=== PATIENT | male | born 1960 | race Caucasian/White ===

== ENCOUNTER → 2017-04-27 | Outpatient (CLI) | payer OTHER | END | disposition home or self-care (01) | LOC: PCVCIMAG 15:43 | DX: I25.10 Atherosclerotic heart disease of native coronary artery without angina pectoris (principal); I10 Essential (primary) hypertension; E78.00 Pure hypercholesterolemia, unspecified; R09.89 Other specified symptoms and signs involving the circulatory and respiratory systems; Z79.899 Other long term (current) drug therapy | CPT/HCPCS: 80061; 93005; 93880 ==

== ENCOUNTER → 2018-02-10 | Outpatient (CLI) | payer OTHER ==
--- NOTE | 2018-02-10 12:40 | PCVCIMAG ---
APPROVED REPORT Study performed: 02/10/2018 09:18:23 Exam: Stress Echocardiogram Indication: CAD s/p PCI, htn, hlp Patient Location: Echo lab Stress Nurse: Dee Conway RN Status: routine Ht: 5 ft 8 in HR: 67 bpm BP: 146/80 mmHg Rhythm: NSR Procedure The patient underwent an Exercise Stress Test using the Garrett Protocol. Blood pressure, heart rate, and EKG were monitored. An Echocardiogram was performed by cartography/mapping technician in four stages in quad fashion. At peak stress, four selected images were obtained and placed side by side with resting images for comparison. Stress Test Details Stress Test: Exercise stress testing was performed using a Garrett protocol. HR Resting HR: 67 bpmMax Heart Rate (APMHR): 161 bpm Max HR Achieved: 144 bpmTarget HR (85% APMHR): 136 bpm % of APMHR: 89 Recovery HR: 89 bpm HR response to stress: Normal HR response to stress BP Resting BP: 146/80 mmHg Max BP: 180/74 mmHg Recovery BP: 130/70 mmHg BP response to stress: Normal blood pressure response to stress. ECG Resting ECG: Sinus Rhythm, incomplete RBBB Stress ECG: Sinus Rhythm ST Change: non-specific ST changes Arrhythmia: None Recovery ECG: Sinus Rhythm Recovery ST Change: Normal Recovery Arrhythmia: None Clinical Reason for Termination: Maximal effort Stress Symptoms: Dyspnea, back pain Exercise duration: 9 min sec Highest Stage Achieved: Stage 3: 3.4 mph at 14% grade. Exercise capacity: 10.4 METs Overall Exercise Capacity for Age: Normal Scale: Active Angina Score: None Pre-Stress Echo The resting Echocardiogram showed normal left ventricular contractility with an estimated Ejection Fraction of about 50-55%. Normal wall motion in all segments on baseline images. Post-Stress Echo The stress Echocardiogram showed normal left ventricular contractility with an estimated Ejection Fraction of about 60-65%. Normal augmentation of wall motion in all segments on post stress images. Clinical No clinical or ECG evidence for ischemia. Conclusion Clinical Response: Non-ischemic Exercise Capacity: Average Stress ECG Response: Non-ischemic Stress Echo Images: Non-ischemic The left ventricle is normal in size and mild concentric wall thickness in both the rest and stress images. Other Information Study Quality: Adequate <Conclusion> The left ventricle is normal in size and mild concentric wall thickness in both the rest and stress images.
== END | disposition home or self-care (01) ==
LOC: PCVCIMAG 09:57
PROVIDERS: ATTEND Internal Medicine Cardiovascular Disease
DX: R07.9 Chest pain, unspecified (principal); I25.10 Atherosclerotic heart disease of native coronary artery without angina pectoris; I10 Essential (primary) hypertension; E78.5 Hyperlipidemia, unspecified; Z88.0 Allergy status to penicillin
CPT/HCPCS: 93325; 93351

== ENCOUNTER → 2018-08-25 | Outpatient (CLI) | payer OTHER ==
--- NOTE | 2018-08-25 15:54 | PCVCIMAG ---
APPROVED REPORT Study performed: 08/25/2018 12:15:12 Exam: Stress Echocardiogram Indication: CAD s/p PCI, chest pain, dyspnea, bradycardia Patient Location: Echo lab Stress Nurse: Dee Conway RN Status: routine Ht: 5 ft 8 in HR: 58 bpm BP: 120/74 mmHg Rhythm: Bradycardia Procedure The patient underwent an Exercise Stress Test using the Garrett Protocol. Blood pressure, heart rate, and EKG were monitored. An Echocardiogram was performed by fire alarm technician in four stages in quad fashion. At peak stress, four selected images were obtained and placed side by side with resting images for comparison. Stress Test Details Stress Test: Exercise stress testing was performed using a Garrett protocol. HR Resting HR: 58 bpmMax Heart Rate (APMHR): 161 bpm Max HR Achieved: 151 bpmTarget HR (85% APMHR): 136 bpm % of APMHR: 93 Recovery HR: 96 bpm HR response to stress: Normal HR response to stress BP Resting BP: 120/74 mmHg Max BP: 170/70 mmHg Recovery BP: 118/74 mmHg BP response to stress: Normal blood pressure response to stress. ECG Resting ECG: Sinus Bradycardia Stress ECG: Sinus Rhythm ST Change: non-specific ST changes Arrhythmia: None Recovery ECG: Sinus Rhythm Recovery ST Change: non-specific ST changes Recovery Arrhythmia: None Clinical Reason for Termination: Maximal effort Stress Symptoms: Dyspnea Exercise duration: 10 min 30 sec Highest Stage Achieved: Stage 4: 4.2 mph at 16% grade. Exercise capacity: 13.4 METs Overall Exercise Capacity for Age: Normal Scale: Active Angina Score: None Pre-Stress Echo The resting Echocardiogram showed normal left ventricular contractility with an estimated Ejection Fraction of about 50-55%. Normal wall motion in all segments on baseline images. Post-Stress Echo The stress Echocardiogram showed normal left ventricular contractility with an estimated Ejection Fraction of about 65%. Normal augmentation of wall motion in all segments on post stress images. Clinical No clinical or ECG evidence for ischemia. Conclusion Clinical Response: Non-ischemic Exercise Capacity: Average Stress ECG Response: Non-ischemic Stress Echo Images: Non-ischemic The left ventricle is normal in size and wall thickness in both the rest and stress images. Other Information Study Quality: Adequate <Conclusion> The left ventricle is normal in size and wall thickness in both the rest and stress images.
== END | disposition home or self-care (01) ==
LOC: PCVCIMAG 12:03
PROVIDERS: ATTEND Internal Medicine Cardiovascular Disease
DX: I25.118 Atherosclerotic heart disease of native coronary artery with other forms of angina pectoris (principal); R53.83 Other fatigue; R06.02 Shortness of breath; E78.5 Hyperlipidemia, unspecified; E78.00 Pure hypercholesterolemia, unspecified; I10 Essential (primary) hypertension
CPT/HCPCS: 93325; 93351